=== PATIENT | female | born 1950 | race Caucasian/White ===

== ENCOUNTER → 2017-08-23 | Outpatient (CLI) | payer MEDICARE, OTHER | LOC: M WHC 09:40 | DX: Z12.31 Encounter for screening mammogram for malignant neoplasm of breast (principal); Z78.0 Asymptomatic menopausal state; Z80.0 Family history of malignant neoplasm of digestive organs | CPT/HCPCS: 77067 ==

== ENCOUNTER → 2018-08-26 | Outpatient (CLI) | payer MEDICARE, OTHER ==
[~2018-08-26] MED LIST: /WARF25TA; BENI20TA11; HYDR25TA6; PERC5TAB8; PREG50CA; THERGRAN
--- NOTE | 2018-08-26 13:56 | REPMRS ---
Patient History The patient states she has not had a clinical breast exam in over a year. Patient is postmenopausal. Family history of colorectal cancer at age 50 or over in sister. No Hormone Replacement Therapy Digital Woman Screen Mammo: August 26, 2018 - Exam #: [id number] Bilateral CC and MLO view(s) were taken. Technologist: Meliza Linda Technologist Prior study comparison: August 23, 2017, digital woman screen mammo performed at [facility]. FINDINGS: The breast tissue is heterogeneously dense. This may lower the sensitivity of mammography. There is a moderate amount of heterogeneously dense fibroglandular tissue which is fairly symmetric. There is no interval development of dominant mass, architectural distortion, or clustered microcalcification typical of malignancy. There has been no change in the appearance of the mammogram from the prior studies. 3-D tomosynthesis shows no additional findings. Assessment: BI-RADS/ACR category 1 mammogram. Negative Mammogram. Recommendation Routine screening mammogram of both breasts in 1 year (for women over age 40). This patient's Lifetime Breast Cancer RIsk is estimated at 4.2 %. This mammogram was interpreted with the aid of an FDA-approved computer-aided dectection system. Electronically Signed By: Karthik Villasenor MD 08/26/18 [id number]
== END ==
LOC: M WHC 09:14
PROVIDERS: ATTEND Physician Assistant
DX: Z12.31 Encounter for screening mammogram for malignant neoplasm of breast (principal); Z78.0 Asymptomatic menopausal state; Z80.0 Family history of malignant neoplasm of digestive organs

== ENCOUNTER 2019-04-30 12:05 | Day surgery (SDC) | payer MEDICARE, OTHER ==
[~2019-04-30] VITALS: Ht 152.4 cm; Wt 122.8 kg
[~2019-04-30 12:05] MED LIST changes: -/WARF25TA; +ATOR1TAB19 PO; +CHOL100029 PO; +COUM1TAB18; +LEVO75TA4 PO; +MAGN250T7 PO; +NS 1,000 ML IV ONE; +OLME1TAB13 PO; +PRES10CA2 PO
[2019-04-30] MEDS ORDERED: LIDOCAINE 2% INJ 100 MG/5 ML SDV (FOR ANES.) As Ordered ONE (13:09)
[2019-04-30] MEDS ORDERED: PROPOFOL 200 MG/20 ML VIAL As Ordered ONE (13:09)
[2019-04-30 14:47] VITALS: BP 136/76
--- NOTE | 2019-04-30 15:50 | ROOR ---
Patient Name: Martha Noel Procedure Date: 04/30/2019 1:38 PM Date of : 1950 Age: 68 Room: [facility] Gender: Female Note Status: Finalized Procedure: Colonoscopy Indications: Positive Cologuard test Providers: Dhruv Franklin Jr, MD Referring MD: GINETTE HA Requesting Provider: Medicines: Propofol per Anesthesia Complications: No immediate complications. Procedure: Pre-Anesthesia Assessment: - Prior to the procedure, a History and Physical was performed, and patient medications and allergies were reviewed. The patient is competent. The risks and benefits of the procedure and the sedation options and risks were discussed with the patient. All questions were answered and informed consent was obtained. Patient identification and proposed procedure were verified by the physician and the nurse in the pre-procedure area and in the procedure room. Mental Status Examination: alert and oriented. Airway Examination: normal oropharyngeal airway and neck mobility. Respiratory Examination: clear to auscultation. CV Examination: normal. ASA Grade Assessment: II - A patient with mild systemic disease. After reviewing the risks and benefits, the patient was deemed in satisfactory condition to undergo the procedure. The anesthesia plan was to use moderate sedation / analgesia (conscious sedation). Immediately prior to administration of medications, the patient was re-assessed for adequacy to receive sedatives. The heart rate, respiratory rate, oxygen saturations, blood pressure, adequacy of pulmonary ventilation, and response to care were monitored throughout the procedure. The physical status of the patient was re-assessed after the procedure. The Colonoscope was introduced through the anus and advanced to the cecum, identified by appendiceal orifice and ileocecal valve. The colonoscopy was performed without difficulty. The patient tolerated the procedure well. The quality of the bowel preparation was adequate. Findings: The recto-sigmoid colon, descending colon, appendiceal orifice and ileocecal valve appeared normal. Five polyps were found in the sigmoid colon, transverse colon, ascending colon and cecum. The polyps were small in size. These polyps were removed with a hot snare. Resection and retrieval were complete. To prevent bleeding after the polypectomy, one hemostatic clip was successfully placed. There was no bleeding at the end of the procedure. Multiple small and large-mouthed diverticula were found in the sigmoid colon. Impression: - The recto-sigmoid colon, descending colon, appendiceal orifice and ileocecal valve are normal. - Five small polyps in the sigmoid colon, in the transverse colon, in the ascending colon and in the cecum, removed with a hot snare. Resected and retrieved. - Diverticulosis in the sigmoid colon. Recommendation: - Discharge patient to home (ambulatory). - Repeat colonoscopy in 3 years for surveillance. Dhrvu Franklin MD Dhruv Franklin Jr, MD 04/30/2019 2:14:15 PM Electronically signed by Dhruv Franklin Jr, MD Number of Addenda: 0 Note Initiated On: 04/30/2019 1:38 PM Estimated Blood Loss: Estimated blood loss: none.
== END 2019-04-30 14:49 | disposition home or self-care (01) ==
LOC: M OPP 12:05
PROVIDERS: ATTEND Surgery
DX: Z12.11 Encounter for screening for malignant neoplasm of colon (principal); R19.5 Other fecal abnormalities; Z80.0 Family history of malignant neoplasm of digestive organs; D12.5 Benign neoplasm of sigmoid colon; D12.2 Benign neoplasm of ascending colon; D12.0 Benign neoplasm of cecum; K57.30 Diverticulosis of large intestine without perforation or abscess without bleeding

== ENCOUNTER → 2020-02-25 | Outpatient (REF) | payer MEDICARE, OTHER ==
[~2020-02-25] MED LIST changes: -NS 1,000 ML IV ONE; -OLME1TAB13 PO; +OLME1TAB45 PO
[2020-02-25 18:23] LABS: PERCENT SATURATION 13.6 % (13.2-45.0)
[2020-02-25 18:47] LABS: FOLATE 11.7 NG/ML
== END ==
LOC: M LAB REF 17:16
PROVIDERS: ATTEND Internal Medicine Nephrology
DX: D64.9 Anemia, unspecified (principal)

== ENCOUNTER → 2020-06-27 | Outpatient (REF) | payer MEDICARE, OTHER ==
[~2020-06-27] MED LIST changes: -OLME1TAB45 PO; +OLME1TAB51 PO
[2020-07-01 20:08] LABS: Methylmalonic Acid 667 nmol/L (0-378)
== END ==
LOC: M LAB REF 16:56
PROVIDERS: ATTEND Internal Medicine Nephrology
DX: D64.9 Anemia, unspecified (principal)

== ENCOUNTER 2025-04-26 09:31 | Day surgery (SDC) | payer MEDICARE, OTHER ==
[~2025-04-26] VITALS: Ht 152.4 cm; Wt 123.3 kg
[~2025-04-26 09:31] MED LIST changes: +ALLO100T PO; +CARV3.12 PO; +CYAN250T5 PO; +LR 1,000 ML IV SCH; +MIRA50TA2 PO; -OLME1TAB51 PO; +OLME1TAB92 PO; +VITA100093 PO
[2025-04-26] MEDS ORDERED: MIDAZOLAM INJ 2 MG/2 ML VIAL As Ordered ONE (12:04)
[2025-04-26] MEDS: PHENYLEPHRINE 2.5% OPHTH SOL 2ML OS SCH (12:56)
[2025-04-26] MEDS: TETRACAINE 0.5% OPHTH SOLN 4ML OS SCH (12:56)
[2025-04-26] MEDS: FLURBIPROFEN 0.03% OPHTH SOLN 2.5 ML OS SCH (12:56)
[2025-04-26] MEDS: CYCLOPENTOLATE 1% OPHTH SOLN 2 ML BTL OS SCH (12:56)
[2025-04-26] MEDS: CEFUROXIME 1 MG/0.1 ML INTRACAMERAL INJ As Ordered ONE (13:48)
[2025-04-26] MEDS: LIDOCAINE 1% SDV 5 ML VIAL As Ordered ONE (13:48)
[2025-04-26 14:10] VITALS: BP 142/66; TEMP 97; O2SAT 97
== END 2025-04-26 14:22 | disposition home or self-care (01) ==
LOC: M SDC 09:31
PROVIDERS: ATTEND Ophthalmology
DX: H25.12 Age-related nuclear cataract, left eye (principal); I12.9 Hypertensive chronic kidney disease with stage 1 through stage 4 chronic kidney disease, or unspecified chronic kidney disease; N18.30 Chronic kidney disease, stage 3 unspecified; E03.9 Hypothyroidism, unspecified; E78.00 Pure hypercholesterolemia, unspecified; M10.9 Gout, unspecified; N32.81 Overactive bladder; Z79.899 Other long term (current) drug therapy; Z79.890 Hormone replacement therapy
CPT/HCPCS: 66984; J0697; J2250; J3010; V2632

== ENCOUNTER 2025-05-03 10:42 | Day surgery (SDC) | payer MEDICARE, OTHER ==
[~2025-05-03] VITALS: Ht 152.4 cm; Wt 123.4 kg
[~2025-05-03 10:42] MED LIST changes: +MIDAZOLAM INJ 2 MG/2 ML VIAL As Ordered ONE
[2025-05-03] MEDS: CYCLOPENTOLATE 1% OPHTH SOLN 2 ML BTL OD SCH (12:05)
[2025-05-03] MEDS: TETRACAINE 0.5% OPHTH SOLN 4ML OD SCH (12:05)
[2025-05-03] MEDS: FLURBIPROFEN 0.03% OPHTH SOLN 2.5 ML OD SCH (12:05)
[2025-05-03] MEDS: PHENYLEPHRINE 2.5% OPHTH SOL 2ML OD SCH (12:05)
[2025-05-03] MEDS: LIDOCAINE 1% SDV 5 ML VIAL As Ordered ONE (13:45)
[2025-05-03] MEDS: CEFUROXIME 1 MG/0.1 ML INTRACAMERAL INJ As Ordered ONE (13:45)
[2025-05-03 14:03] VITALS: BP 115/62; TEMP 97.2; O2SAT 98
== END 2025-05-03 14:25 | disposition home or self-care (01) ==
LOC: M SDC 10:42
PROVIDERS: ATTEND Ophthalmology
DX: H25.11 Age-related nuclear cataract, right eye (principal); I12.9 Hypertensive chronic kidney disease with stage 1 through stage 4 chronic kidney disease, or unspecified chronic kidney disease; E03.9 Hypothyroidism, unspecified; E78.5 Hyperlipidemia, unspecified; M10.9 Gout, unspecified; N18.30 Chronic kidney disease, stage 3 unspecified; Z79.899 Other long term (current) drug therapy; E66.01 Morbid (severe) obesity due to excess calories; Z68.43 Body mass index [BMI] 50.0-59.9, adult
CPT/HCPCS: 66984; J0697; J2250; J3010; V2632